=== PATIENT | female | born 1990 | race Caucasian/White ===

== ENCOUNTER 2016-06-15 05:44 | Day surgery (SDC) | payer BC, OTHER ==
[2016-06-15] MEDS ORDERED: LACTATED RINGERS 1,000 ML ONE (05:47)
[2016-06-15] MEDS ORDERED: IV START KIT ONE (05:48)
[2016-06-15] MEDS ORDERED: LIDOCAINE 1% 2 ML VIAL ID PRN (06:05)
[2016-06-15] MEDS ORDERED: LACTATED RINGERS 1,000 ML IV SCH ×3 (06:05→08:38)
[2016-06-15] MEDS ORDERED: ROCURONIUM BROMIDE 10 MG/ML DOSE IV ONE ×3 (06:36→06:38)
[2016-06-15] MEDS ORDERED: PROPOFOL 20 ML IV ONE (06:36)
[2016-06-15] MEDS ORDERED: LIDOCAINE 2% (MULTI DOSE) 10 ML VIAL ONE (06:36)
[2016-06-15] MEDS ORDERED: FENTANYL 100 MCG/2 ML VIAL ONE ×2 (06:39→07:32)
[2016-06-15] MEDS ORDERED: MIDAZOLAM HCL 1 MG/ML 2ML VIAL ONE ×2 (06:39→07:04)
[2016-06-15] MEDS ORDERED: NALOXONE HCL 0.4 MG/ML VIAL IV PRN (07:40)
[2016-06-15] MEDS ORDERED: MEPERIDINE 25 MG/ML SYRINGE IV PRN (07:40)
[2016-06-15] MEDS ORDERED: ONDANSETRON 4 MG/2ML 2 ML VIAL IV PRN ×2 (07:40→08:38)
[2016-06-15] MEDS ORDERED: HYDRALAZINE HCL 20 MG/1 ML VIAL IV PRN (07:40)
[2016-06-15] MEDS ORDERED: PROMETHAZINE HCL 25 MG/ML VIAL IM PRN (07:40)
[2016-06-15] MEDS ORDERED: ATROPINE SULFATE 0.4 MG/1 ML VIAL IV PRN (07:40)
[2016-06-15] MEDS ORDERED: LABETALOL HCL 5 MG/ML 20ML VIAL IV PRN (07:40)
[2016-06-15] MEDS ORDERED: HYDROMORPHONE HCL 1 MG/ML SYRINGE IV PRN (07:40)
[2016-06-15] MEDS ORDERED: FENTANYL 100 MCG/2 ML VIAL IV PRN (07:40)
[2016-06-15] MEDS ORDERED: OXYCODONE HCL 5 MG TABLET PO PRN (08:38)
[2016-06-15] MEDS ORDERED: KETOROLAC TROMETHAMINE 30 MG/ML 1 ML VIAL IV PRN (08:38)
--- NOTE | 2016-06-15 18:47 | OP ---
Lenora Pro [id number] DATE: 06/15/2016 SURGEON: Johnathon Macedo M.D. PREOPERATIVE DIAGNOSIS: Requested sterilization. POSTOPERATIVE DIAGNOSIS: Requested sterilization. OPERATION: LAPAROSCOPIC TUBAL LIGATION ANESTHESIA: General. PROCEDURE: After induction of satisfactory general anesthesia the patient placed in the supine lithotomy position and prepped and draped in usual sterile fashion. A Hulka tenaculum was placed in the cervix. An infraumbilical stab wound was made with a #15 knife blade and the Veress needle inserted into the peritoneal cavity. The peritoneal cavity was insufflated with 3 liters of carbon dioxide gas. The needle was removed and the incision extended to 1 cm in length. The laparoscopic sleeve and trocar were introduced. The trocar was removed, the laparoscope was introduced and the above findings were noted. Using the Kleedwardinger bipolar coagulating forceps, the right Fallopian tube was cauterized in three contiguous areas, using bipolar coagulating forceps, at a power setting of 6. The same procedure was repeated on the left. When hemostasis was assured, the laparoscope was then removed, and the pneumoperitoneum was allowed to escape through the sleeve. The sleeve was then removed and the incision was closed with interrupted vertical mattress stitches of 4-0 Nylon. The patient tolerated the procedure well and was taken to the recovery room awake and in good condition. There were no complications. All sponge, instrument, and needles counts were correct. There was no blood replacement. There were no specimens removed. There were no complications. Estimated blood loss was minimal. JOB: [id number]
== END 2016-06-15 11:20 | disposition home or self-care (01) ==
LOC: SDC 05:44
PROVIDERS: ATTEND Obstetrics & Gynecology
PROC: 0U574ZZ Destruction of Bilateral Fallopian Tubes, Percutaneous Endoscopic Approach (ICD-10-PCS; principal; 2016-06-15)
DX: Z30.2 Encounter for sterilization (principal)
CPT/HCPCS: 58670; J3010 ×2; A9270; J2250 ×2; J7120; J2001